=== PATIENT | male | born 1995 | race American Indian/Alaskan Native ===

== ENCOUNTER 2017-04-15 15:14 | Emergency (ER) | payer MEDICAID, OTHER ==
[2017-04-15 15:14] VITALS: BMI 24.3
[2017-04-15 15:46] VITALS: TEMP 98.3
--- NOTE | 2017-04-15 16:22 | ED PDOC ---
Arrival/HPI - General Chief Complaint: Finger,Hand,&Wrist Time Seen by Provider: 04/15/17 15:53 Historian: Patient - History of Present Illness Narrative History of Present Illness (Text): 04/15/17 16:20 21yo male with no PMhx who present with complaint of left hand pain s/p trauma yesterday. States he injured his hand yesterday, while playing basketball. Notes that he took analgesic yesterday with some relieve. He came to ED for the persistent pain. Denies any other complaint. Past Medical History - Provider Review Nursing Documentation Reviewed: Yes - Infectious Disease Hx of Infectious Diseases: None - Tetanus Immunization Tetanus Immunization: Up to Date - Past Medical History Past Medical History: No Previous - Cardiac Hx Cardiac Disorders: No Hx Peripheral Vascular Disease: No - Pulmonary Hx Respiratory Disorders: No Hx Tuberculosis: No - Neurological Hx Neurological Disorder: No - HEENT Hx HEENT Disorder: No - Renal Hx Renal Disorder: Yes Hx Kidney Stones: Yes - Endocrine/Metabolic Hx Endocrine Disorders: No Hx Systemic Lupus Erythematosus: No - Hematological/Oncological Hx Blood Disorders: No - Integumentary Hx Dermatological Disorder: No - Musculoskeletal/Rheumatological Hx Musculoskeletal Disorders: No - Gastrointestinal Hx Gastrointestinal Disorders: No - Genitourinary/Gynecological Hx Genitourinary Disorders: No Hx Urinary Tract Infection: No - Psychiatric Hx Psychophysiologic Disorder: No Hx Substance Use: No - Past Surgical History Past Surgical History: No Previous - Surgical History Other/Comment: REMOVAL OF KIDNEY STONES. - Anesthesia Hx Anesthesia Reactions: No Hx Malignant Hyperthermia: No - Suicidal Assessment Feels Threatened In Home Enviroment: No Family/Social History - Physician Review Nursing Documentation Reviewed: Yes Family/Social History: Unknown Family HX Smoking Status: Never Smoked Hx Alcohol Use: No Hx Substance Use: No Hx Substance Use Treatment: No Allergies/Home Meds Allergies/Adverse Reactions: Allergies No Known Allergies Allergy (Verified 04/15/17 15:42) Review of Systems - Physician Review All systems were reviewed & negative as marked: Yes - Review of Systems Constitutional: Normal Eyes: Normal ENT: Normal Respiratory: Normal Cardiovascular: Normal Gastrointestinal: Normal Genitourinary Male: Normal Musculoskeletal: Arthralgias (Left hand pain) Skin: Normal Neurological: Normal Endocrine: Normal Hemo/Lymphatic: Normal Psychiatric: Normal Physical Exam Vital Signs Reviewed: Yes Vital Signs Temp Pulse Resp BP Pulse Ox 04/15/17 15:42 98.3 F 69 16 103/62 97 Temperature: Afebrile Blood Pressure: Normal Pulse: Regular Respiratory Rate: Normal Appearance: Positive for: Well-Appearing, Non-Toxic, Comfortable Pain Distress: None Mental Status: Positive for: Alert and Oriented X 3 - Systems Exam Head: Present: Atraumatic, Normocephalic Pupils: Present: PERRL Extroacular Muscles: Present: EOMI Conjunctiva: Present: Normal Mouth: Present: Moist Mucous Membranes Neck: Present: Normal Range of Motion Respiratory/Chest: Present: Clear to Auscultation, Good Air Exchange. No: Respiratory Distress, Accessory Muscle Use Cardiovascular: Present: Regular Rate and Rhythm, Normal S1, S2. No: Murmurs Abdomen: Present: Normal Bowel Sounds. No: Tenderness, Distention, Peritoneal Signs Back: Present: Normal Inspection Upper Extremity: Present: Normal Inspection, Normal ROM, NORMAL PULSES, Tenderness (Over the left 2nd,3rd and 4th MCP), Neurovascularly Intact. No: Cyanosis, Edema, Swelling, Erythema, Deformity Lower Extremity: Present: Normal Inspection (Tenderness over the left 2, 3rd and 4th MCP). No: Edema Neurological: Present: GCS=15, CN II-XII Intact, Speech Normal Skin: Present: Warm, Dry, Normal Color. No: Rashes Psychiatric: Present: Alert, Oriented x 3, Normal Insight, Normal Concentration Medical Decision Making ED Course and Treatment: 04/15/17 17:03 Left hand xray - No acute fracture Enzo wrap applied. Result was DW the pt. Rx of Ibuprofen given for pain. - RAD Interpretation Radiology Orders: 04/15/17 15:53 HAND LEFT 3 VIEWS ROUTINE [RAD] Stat - Medication Orders Current Medication Orders: Discontinued Medications Ibuprofen (Motrin Tab) 600 mg PO STAT STA Stop: 04/15/17 16:14 Last Admin: 04/15/17 16:25 Dose: 600 mg MAR Pain/Vitals Document 04/15/17 16:25 HI (Rec: 04/15/17 16:26 HI [id number]) Pain Reassessment Is This A Pain ReAssessment? No Location Left, Right or Bilateral Left Pain Location Body Site Hand Description Constant Disposition/Present on Arrival - Present on Arrival Any Indicators Present on Arrival: No History of DVT/PE: No History of Uncontrolled Diabetes: No Urinary Catheter: No History of Decub. Ulcer: No History Surgical Site Infection Following: None - Disposition Have Diagnosis and Disposition been Completed?: Yes Diagnosis: Hand sprain Disposition: HOME/ ROUTINE Disposition Time: 17:05 Patient Plan: Discharge Condition: STABLE Discharge Instructions (ExitCare): Hand Pain (DC) Additional Instructions: Follow up with your doctor Return to ED for any new or worsening symptom Prescriptions: Ibuprofen [Motrin Tab] 600 mg PO Q6 #20 tab Referrals: Lizbeth Lock MD [Primary Care Provider] - Follow up with primary Forms: [employer] (Welsh)
[2017-04-15 17:20] VITALS: BP 105/68; PULSE 65; RESP 18; O2SAT 100
--- NOTE | 2017-04-15 18:35 | RAD ---
PROCEDURE: Left Hand Radiographs. HISTORY: hand pain s/p hand pain following trauma. COMPARISON: None. FINDINGS: BONES: Normal. No evidence of acute displaced fracture nor dislocation. Fracture. JOINTS: Normal. No osteoarthritic changes. SOFT TISSUES: Normal. OTHER FINDINGS: None. IMPRESSION: No evidence of acute displaced fracture nor dislocation. If symptoms persist or worsen consider followup studies such as CT scan or MRI. .
== END 2017-04-15 17:23 | disposition home or self-care (01) ==
LOC: ED 15:14
DX: S63.92XA Sprain of unspecified part of left wrist and hand, initial encounter (principal); X50.0XXA Overexertion from strenuous movement or load, initial encounter; Y93.67 Activity, basketball; Y92.89 Other specified places as the place of occurrence of the external cause

== ENCOUNTER 2018-06-02 08:08 | Emergency (ER) | payer SELFPAY ==
--- NOTE | 2018-06-02 08:35 | ED PDOC ---
Arrival/HPI <Steven Devries - Last Filed: 06/02/18 10:01> - General Historian: Patient - History of Present Illness Narrative History of Present Illness (Text): Patient is a 22 year old male with past medical history of left ureteral calculus s/p stent placement (2015) presenting with right sided flank pain, associated with nausea and vomiting. Symptoms began two hours prior. Also admits to dysuria, states the last time he was able to urinate was last night. Denies h ematuria, fevers, chills, chest pain, shortness of breath, abdominal pain, diarrhea. 06/02/18 08:45 Time/Duration: 1-3 hours Symptom Onset: Sudden Symptom Course: Unchanged Context: Home <Emigdio Rocha - Last Filed: 06/02/18 18:15> - General Chief Complaint: Male Genitourinary Past Medical History - Provider Review Nursing Documentation Reviewed: Yes - Infectious Disease Hx of Infectious Diseases: None - Tetanus Immunization Tetanus Immunization: Up to Date - Past Medical History Past Medical History: No Previous - Cardiac Hx Cardiac Disorders: No Hx Peripheral Vascular Disease: No - Pulmonary Hx Respiratory Disorders: No Hx Tuberculosis: No - Neurological Hx Neurological Disorder: No - HEENT Hx HEENT Disorder: No - Renal Hx Renal Disorder: Yes Hx Kidney Stones: Yes - Endocrine/Metabolic Hx Endocrine Disorders: No Hx Systemic Lupus Erythematosus: No - Hematological/Oncological Hx Blood Disorders: No - Integumentary Hx Dermatological Disorder: No - Musculoskeletal/Rheumatological Hx Musculoskeletal Disorders: No - Gastrointestinal Hx Gastrointestinal Disorders: No - Genitourinary/Gynecological Hx Genitourinary Disorders: No Hx Urinary Tract Infection: No - Psychiatric Hx Psychophysiologic Disorder: No Hx Substance Use: No - Past Surgical History Past Surgical History: No Previous - Surgical History Other/Comment: REMOVAL OF KIDNEY STONES. - Anesthesia Hx Anesthesia Reactions: No Hx Malignant Hyperthermia: No - Suicidal Assessment Feels Threatened In Home Enviroment: No <Emigdio Rocha - Last Filed: 06/02/18 18:15> Family/Social History - Physician Review Nursing Documentation Reviewed: Yes Family/Social History: No Known Family HX Smoking Status: Current Some Days Smoker Hx Alcohol Use: No Hx Substance Use: No Hx Substance Use Treatment: No <Emigdio Rocha - Last Filed: 06/02/18 18:15> Allergies/Home Meds <Steven Devries - Last Filed: 06/02/18 10:01> <Emigdio Rocha - Last Filed: 06/02/18 18:15> Allergies/Adverse Reactions: Allergies No Known Allergies Allergy (Verified 04/15/17 15:42) Review of Systems - Physician Review All systems were reviewed & negative as marked: Yes - Review of Systems Respiratory: Normal Cardiovascular: Normal Gastrointestinal: Normal Genitourinary Male: Dysuria Neurological: Normal <Emigdio Rocha - Last Filed: 06/02/18 18:15> Physical Exam Vital Signs Temp Pulse Resp BP Pulse Ox 06/02/18 08:21 97.9 F 56 L 16 106/64 99 <Steven Devries - Last Filed: 06/02/18 10:01> Vital Signs Reviewed: Yes Vital Signs Temp Pulse Resp BP Pulse Ox 06/02/18 08:21 97.9 F 56 L 16 106/64 99 Temperature: Afebrile Blood Pressure: Normal Pulse: Regular Respiratory Rate: Normal Appearance: Positive for: Well-Appearing, Non-Toxic, Comfortable Pain Distress: None Mental Status: Positive for: Alert and Oriented X 3 - Systems Exam Head: Present: Atraumatic, Normocephalic Extroacular Muscles: Present: EOMI Conjunctiva: Present: Normal Mouth: Present: Moist Mucous Membranes Respiratory/Chest: Present: Clear to Auscultation, Good Air Exchange. No: Respiratory Distress, Accessory Muscle Use Cardiovascular: Present: Regular Rate and Rhythm, Normal S1, S2. No: Murmurs Abdomen: Present: Normal Bowel Sounds. No: Tenderness, Distention Back: Present: CVA Tenderness (right side) Lower Extremity: Present: Normal Inspection. No: Edema Neurological: Present: GCS=15, CN II-XII Intact, Speech Normal Skin: Present: Warm, Dry, Normal Color Psychiatric: Present: Alert, Oriented x 3 <Emigdio Rocha - Last Filed: 06/02/18 18:15> Medical Decision Making ED Course and Treatment: 06/02/18 09:12 A 22 year old male who presents to the ED with a complaint of right sided flank pain. In agreement with resident note, which includes further HPI details. Patient was seen and evaluated with resident, came up with plan and treatment together. - RAD Interpretation Radiology Orders: 06/02/18 08:26 ABDOMEN & PELVIS [ABD & PELVIS W/O PO OR IV CONT] [CT] Stat - Medication Orders Current Medication Orders: Sodium Chloride (Sodium Chloride 0.9%) 1,000 mls @ 999 mls/hr IV .Q1H1M STA Stop: 06/02/18 09:38 Last Admin: 06/02/18 08:40 Dose: 999 mls/hr eMAR Start Stop Document 06/02/18 08:40 MA (Rec: 06/02/18 08:51 MA [id number]) Intravenous Solution Start Date 06/02/18 Start Time 08:40 <Steven Devries - Last Filed: 06/02/18 10:01> ED Course and Treatment: Impression: 22 year old male with right flank pain Plan: - CBC, CMP - CT abd/pelvis w/o contrast - Reassess and disposition Prior Visits: Notes and results from previous visits were reviewed. Progress Notes: CT FINDINGS: LOWER THORAX: Unremarkable. LIVER: Unremarkable. No gross lesion or ductal dilatation. GALLBLADDER AND BILE DUCTS: Unremarkable. PANCREAS: Unremarkable. No gross lesion or ductal dilatation. SPLEEN: Unremarkable. ADRENALS: Unremarkable. No mass. KIDNEYS AND URETERS: Unremarkable. No hydronephrosis. No solid mass. There is a nonobstructing 3 mm stone in the lower pole of the left kidney. There are no ureteral stones. Phleboliths are seen in the pelvis VASCULATURE: Unremarkable. No aortic aneurysm. No aortic atherosclerotic calcification or mural plaque present. BOWEL: Unremarkable. No obstruction. No gross mural thickening. APPENDIX: Unremarkable. Normal appendix. PERITONEUM: Unremarkable. No free fluid. No free air. LYMPH NODES: Unremarkable. No enlarged lymph nodes. BLADDER: Unremarkable. REPRODUCTIVE: Unremarkable. BONES: No acute fracture. OTHER FINDINGS: None. IMPRESSION: There is a nonobstructing 3 mm stone in the lower pole of the left kidney. There are no ureteral stones. Phleboliths are seen in the pelvis 06/02/18 09:43 Labs and imaging reviewed. Patient hemodynamically stable and op timized for discharge to follow up with primary medical doctor and urologist. - RAD Interpretation Radiology Orders: 06/02/18 08:26 ABDOMEN & PELVIS [ABD & PELVIS W/O PO OR IV CONT] [CT] Stat <Emigdio Rocha - Last Filed: 06/02/18 18:15> - PA / HOG ROOM SUPERVISOR / Resident Statement / has reviewed & agrees with the documentation as recorded. ROSMERY has examined the patient and agrees with the treatment plan. (22 yr old male w/ hx of kidney stone p/w R sided flank pain, nausea and vomiting. Well appearing on exam and on my exam no appreciable RLQ pain or abd tenderness. Tolerated PO fluids well in emergency department, Mild R sided flank tenderness. CT unremarkable, Urinalysis w/ hematuria, share findings w/ patient and need to follow up w/ uro. He is agreeable to plan. No hx of STD or penile d/c. Urine appeared low. No hx of trauma or recent increased workout or body aches. Labs otherwise unremarkable. No dysuria / urgency or frequency. Pt likely passed his stone.) - Scribe Statement The provider has reviewed the documentation as recorded by the Scribe Aileen Daniel Provider Scribe Attestation: All medical record entries made by the Scribe were at my direction and personally dictated by me. I have reviewed the chart and agree that the record accurately reflects my personal performance of the history, physical exam, medical decision making, and the department course for this patient. I have also personally directed, reviewed, and agree with the discharge instructions and disposition. <Steven Devries - Last Filed: 06/02/18 10:01> Disposition/Present on Arrival <Steven Devries - Last Filed: 06/02/18 10:01> - Present on Arrival Any Indicators Present on Arrival: No History of DVT/PE: No History of Uncontrolled Diabetes: No Urinary Catheter: No History of Decub. Ulcer: No History Surgical Site Infection Following: None - Disposition Have Diagnosis and Disposition been Completed?: Yes Disposition Time: 09:44 Patient Plan: Discharge <Emigdio Rocha - Last Filed: 06/02/18 18:15> - Disposition Diagnosis: Flank pain, Hematuria Disposition: HOME/ ROUTINE Condition: STABLE Discharge Instructions (ExitCare): Blood in the Urine (Hematuria), Adult (DC) Additional Instructions: Follow up with your primary medical doctor and your urologist Dr. Sandra Ding with 3-5 days Return to ED if symptoms worsen Referrals: Sandra Ding MD [Staff Provider] - Follow up with primary Forms: [employer] (N[place]ian)
[2018-06-02] MEDS ORDERED: Sodium Chloride 0.9% 1,000 ML IV STA (08:38)
[2018-06-02 08:48] VITALS: RESP 16; TEMP 97.9; BMI 25.0
[2018-06-02 09:16] LABS: BASO # 0.01 K/mm3 (0.0-2.0); BASO % 0.2 % (0.0-3.0); EOS # 0.1 (0.0-0.7); EOS % 0.9 % (1.5-5.0); HEMOGLOBIN 14.8 g/dL (14.0-18.0); LYMPH # 1.8 (1.2-3.4); LYMPH % 30.7 % (22.0-35.0); MEAN CELL VOLUME 91.4 fl (80.0-105.0); MEAN CORPUSCULAR HEMOGLOBIN 30.3 pg (25.0-35.0); MEAN CORPUSCULAR HGB CONC 33.1 g/dl (31.0-37.0); MEAN PLATELET VOLUME 9.7 fl (7.0-11.0); MONO # 0.4 (0.1-0.6); RBC 4.89 10^6/uL (3.5-6.1); RED CELL DISTRIBUTION WIDTH 12.2 % (11.5-14.5); WHITE BLOOD COUNT 5.7 10^3/uL (4.5-11.0)
--- NOTE | 2018-06-02 09:21 | CT ---
Date of service: 06/02/2018 PROCEDURE: CT Abdomen and Pelvis without intravenous contrast HISTORY: eval kidney stone COMPARISON: None. TECHNIQUE: Without contrast.. Contrast dose: Radiation dose: Total exam DLP = 373.42 mGy-cm. This CT exam was performed using one or more of the following dose reduction techniques: Automated exposure control, adjustment of the mA and/or kV according to patient size, and/or use of iterative reconstruction technique. FINDINGS: LOWER THORAX: Unremarkable. LIVER: Unremarkable. No gross lesion or ductal dilatation. GALLBLADDER AND BILE DUCTS: Unremarkable. PANCREAS: Unremarkable. No gross lesion or ductal dilatation. SPLEEN: Unremarkable. ADRENALS: Unremarkable. No mass. KIDNEYS AND URETERS: Unremarkable. No hydronephrosis. No solid mass. There is a nonobstructing 3 mm stone in the lower pole of the left kidney. There are no ureteral stones. Phleboliths are seen in the pelvis VASCULATURE: Unremarkable. No aortic aneurysm. No aortic atherosclerotic calcification or mural plaque present. BOWEL: Unremarkable. No obstruction. No gross mural thickening. APPENDIX: Unremarkable. Normal appendix. PERITONEUM: Unremarkable. No free fluid. No free air. LYMPH NODES: Unremarkable. No enlarged lymph nodes. BLADDER: Unremarkable. REPRODUCTIVE: Unremarkable. BONES: No acute fracture. OTHER FINDINGS: None. IMPRESSION: There is a nonobstructing 3 mm stone in the lower pole of the left kidney. There are no ureteral stones. Phleboliths are seen in the pelvis
[2018-06-02 09:24] LABS: ALB/GLOB RATIO 1.4 (1.1-1.8); ALBUMIN 4.5 g/dL (3.0-4.8); ALT/SGPT 20 U/L (7-56); AST/SGOT 38 U/L (17-59); BLOOD UREA NITROGEN 10 mg/dL (7-21); CALCIUM 8.8 mg/dL (8.4-10.5); GFR NON-AFRICAN AMERICAN > 60; LIPASE 155 U/L (23-300)
[2018-06-02] MEDS ORDERED: Potassium Chloride 40 mEq/30 ml LIQ UD PO STA (09:39)
[2018-06-02 09:43] LABS: URINE BILIRUBIN NEGATIVE (NEGATIVE); URINE BLOOD LARGE (NEGATIVE); URINE GLUCOSE (UA) NEGATIVE (NEGATIVE); URINE LEUKOCYTE ESTERASE NEGATIVE Leu/uL (NEGATIVE); URINE PROTEIN TRACE mg/dL (<30 mg/dL); URINE UROBILINOGEN 0.2 E.U./dL (<1 E.U./dL)
[2018-06-02 09:46] LABS: URINE APPEARANCE CLEAR (CLEAR); URINE COLOR YELLOW (YELLOW)
[2018-06-02 09:53] LABS: URINE RBC 25 - 30 /hpf (0-2); URINE WBC 0 - 2 /hpf (0-6)
[2018-06-02 09:54] LABS: URINE BACTERIA MANY /hpf; URINE EPITHELIAL CELLS 0 - 2 /hpf (0-5)
[2018-06-02 10:19] VITALS: BP 115/56; PULSE 54; O2SAT 100
== END 2018-06-02 10:19 | disposition home or self-care (01) ==
LOC: ED 08:08
DX: R31.9 Hematuria, unspecified (principal); R10.9 Unspecified abdominal pain
CPT/HCPCS: 74176; 80053; 81001; 83690; 85025; 99284; J3480; J7030